=== PATIENT | female | born 1955 | race Hispanic/Latino ===

== ENCOUNTER → 2025-06-16 | Day surgery (SDC) | payer BC ==
[2025-06-09 11:55] LABS: BASOPHILS % 1.1 % (0.0-1.0); EOSINOPHILS % 1.2 % (0.0-6.0); LYMPHOCYTES % 32.2 % (18.0-39.1); MONOCYTES % 11.8 % (4.4-11.3); NEUTROPHILS % 53.3 % (38.7-80.0); RED CELL DISTRIBUTION WIDTH 13.2 % (11.7-14.4)
[~2025-06-16] MED LIST: CENTRUM ADULTS1 EACH PO; DOXAZOSIN MESYLA2 MG PO; LEVOTHYROXINE25 MCG PO; LIDOCAINE HCL 2% LOCAL INJ 5 ML SDV VIAL INJ ONE; LISINOPRIL10 MG PO; METFORMIN HCL500 MG PO; NIFEDIPINE ER30 M1 PO; PROPOFOL IV EMULSION 10 MG/ML 20 ML VIAL ONE; PROPOFOL IV EMULSION 50 ML IV ONE; SIMVASTATIN20 MG PO
[2025-06-16] MEDS: LACTATED RINGER'S 1,000 ML ONE (11:18)
[2025-06-16 13:40] VITALS: BP 145/75; PULSE 59; RESP 16; O2SAT 98
== END | disposition home or self-care (01) ==
LOC: OR 10:50
PROVIDERS: ATTEND Internal Medicine Gastroenterology
DX: Z12.11 Encounter for screening for malignant neoplasm of colon (principal); K64.8 Other hemorrhoids; I10 Essential (primary) hypertension; E11.9 Type 2 diabetes mellitus without complications; E78.00 Pure hypercholesterolemia, unspecified; E03.9 Hypothyroidism, unspecified; L80 Vitiligo; Z79.84 Long term (current) use of oral hypoglycemic drugs; Z79.890 Hormone replacement therapy; Z79.899 Other long term (current) drug therapy; Z68.35 Body mass index [BMI] 35.0-35.9, adult; Z01.810 Encounter for preprocedural cardiovascular examination; Z01.812 Encounter for preprocedural laboratory examination
CPT/HCPCS: 36415 ×2; 45380; 45385; 82948; 85025; 93005; J2003; J2704; J7121; 45378